=== PATIENT | male | born 1995 | race Caucasian/White ===

== ENCOUNTER 2021-02-20 03:12 | Emergency (ER) | payer OTHER ==
[~2021-02-20] VITALS: Ht 182.9 cm; Wt 72.7 kg
[2021-02-20 03:20] VITALS: BP 121/92
[2021-02-20] MEDS ORDERED: acetaminophen 325mg tablet PO ONE (03:25)
[2021-02-20] MEDS ORDERED: ondansetron 4mg rapidly disintigrating tab PO ONE (03:25)
[2021-02-20] MEDS ORDERED: ketorolac trometh inj. 60 MG/2 ML VIAL IM ONE (03:25)
[2021-02-20] MEDS ORDERED: HYDROcodone/acetaminophen 5mg/325mg tablet PO ONE (03:25)
== END 2021-02-20 04:23 | disposition home or self-care (01) ==
LOC: ER 03:14
DX: H92.03 Otalgia, bilateral (principal)
CPT/HCPCS: 96372; 99284; J1885